=== PATIENT | male | born 1970 | race Hispanic/Latino ===

== ENCOUNTER 2019-10-19 11:12 | Observation (INO) | payer BC, SELFPAY ==
[2019-10-19] MEDS ORDERED: MORPHINE 2 MG/ML SYR ONE (11:47)
[2019-10-19] MEDS ORDERED: ONDANSETRON 4 MG/2 ML VIAL ONE ×2 (11:47→14:57)
[2019-10-19] MEDS ORDERED: NA CHLORIDE 0.9% 1,000 ML ONE (11:47)
[2019-10-19 11:57] LABS: Absolute Lymphocytes (CBC) 1.6 K/uL (0.7-4.9); Basophils % 0.5 % (0-1.3); Hematocrit 42.9 % (39.6-49.0); MPV 9.2 fL (7.6-11.3); RBC Red Blood Cell Count 6.82 M/uL (4.33-5.43)
[2019-10-19 12:16] LABS: Albumin 3.8 g/dL (3.4-5.0); Bilirubin Direct 0.2 mg/dL (0-0.2); Bilirubin Total 0.6 mg/dL (0.2-1.0); Potassium 3.9 mmol/L (3.5-5.1)
[2019-10-19 12:38] LABS: Anisocytosis 2+; Blood Morphology Comment NOTED (NOT SEEN); Hypochromasia 2+; Platelet Estimate ADEQ; Urine White Blood Cell Casts OK
--- NOTE | 2019-10-19 12:41 | RAD REPORT ---
EXAM DESCRIPTION: CT - Abdomen Pelvis W Contrast - 10/19/2019 12:28 pm CLINICAL HISTORY: ABD PAIN COMPARISON: No comparisons TECHNIQUE: Biphasic, helical CT imaging of the abdomen and pelvis was performed following 100 ml non -ionic IV contrast. No oral contrast was given. All CT scans are performed using dose optimization technique as appropriate and may include automated exposure control or mA/KV adjustment according to patient size. FINDINGS: No suspicious findings in the lung bases. The liver, spleen, and pancreas show no suspicious findings. There is borderline to mild fatty infilt ration of the liver. No gallbladder or biliary tree abnormality. Symmetric renal function is seen with no hydronephrosis or suspicious renal mass. No pyelonephritis o r acute parenchymal process. No bladder abnormalities. No adrenal abnormalities. Stomach is distended with retained fluid and a small amount of food. . No wall thickening or mass. Sm all bowel loops are not dilated but multiple fluid-filled small bowel loops are present. No colon dil atation. Moderate stool volume seen in the right-side of the colon. Midportion of the appendix is dil ated to 12-2013 mm. Punctate appendicoliths are present. There is trace amount of stranding in the pe riappendiceal fat. Tip of the cecum is not thickened. No free air, free fluid or pneumatosis. No other area of possible inflammatory stranding. No mass or bulky lymphadenopathy. A very small sub centimeter umbilical hernia is present. Small bilateral fat only inguinal hernias are present. No suspicious bony findings. IMPRESSION: As detailed above, findings in the appendix are suspicious for early appendicitis and co rrelation is needed with clinical presentation. Patient also has a nonobstructive gastroenteritis pattern. No bowel obstruction, free air or emergent finding otherwise noted.
--- NOTE | 2019-10-19 13:31 | RAD REPORT ---
EXAM DESCRIPTION: RAD - Chest Single View - 10/19/2019 1:23 pm CLINICAL HISTORY: abdominal pain Chest pain. COMPARISON: No comparisons FINDINGS: Portable technique limits examination quality. The lungs are grossly clear. The heart is normal in size. No displaced fractures. IMPRESSION: No acute intrathoracic process suspected.
[2019-10-19 13:32] LABS: Protime INR 0.98
[2019-10-19] MEDS ORDERED: PIPER/TAZO/NS 3.375gm 3.375 GM/100 ML BAG ONE (13:33)
--- NOTE | 2019-10-19 13:46 | ER ---
Nurse's Notes [facility] Name: Fred Castro Age: 49 yrs Sex: Male : 1970 Arrival Date: 10/19/2019 Time: 11:15 Bed 15 Private MD: Diagnosis: Acute appendicitis Presentation: 10/19 11:18 Presenting complaint: Patient states: Stomach pains and cramps since 430 this morning. ca1 I tried to use the restroom but cannot. Took Mg Citrate, Pepto-Bismol and some heartburn medicine. Denies N/V/diarrhea. Transition of care: patient was not received from another setting of care. Onset of symptoms was October 19, 2019. Risk Assessment: Do you want to hurt yourself or someone else? Patient reports no desire to harm self or others. Initial Sepsis Screen: Does the patient meet any 2 criteria? No. Patient's initial sepsis screen is negative. Does the patient have a suspected source of infection? No. Patient's initial sepsis screen is negative. Care prior to arrival: None. 11:18 Method Of Arrival: Ambulatory ca1 11:18 Acuity: SUNSHINE 3 ca1 Historical: - Allergies: 11:22 No Known Allergies; ca1 - Home Meds: 11:22 lisinopril 20 mg Oral tab 1 tab once daily [Active]; ca1 - PMHx: 11:22 Hypertension; ca1 - PSHx: 11:22 None; ca1 - Immunization history:: Adult Immunizations up to date, Flu vaccine is not up to date. Patient has never been vaccinated. - Coronavirus screen:: The patient has NOT traveled to [place], [place], or [place] in the past 14 days. The patient has NOT had contact with known/suspected case of Coronavirus?. - Social history:: Smoking status: Patient reports the use of cigarette tobacco products, smokes one-half pack cigarettes per day. - Ebola Screening: : Patient negative for fever greater than or equal to 101.5 degrees Fahrenheit, and additional compatible Ebola Virus Disease symptoms Patient denies exposure to infectious person Patient denies travel to an Ebola-affected area in the 21 days before illness onset No symptoms or risks identified at this time. Screenin:30 Abuse screen: Denies threats or abuse. Nutritional screening: No deficits noted. rb1 Tuberculosis screening: No symptoms or risk factors identified. Fall Risk None identified. Assessment: 11:30 General: Appears in no apparent distress. comfortable, Behavior is calm, cooperative, rb1 Denies fever. General: Pt. reports having two beers last night. Pain: Complains of pain in abdomen Pain currently is 8 out of 10 on a pain scale. Quality of pain is described as crampy, Pain began 0430 this morning. Neuro: Level of Consciousness is awake, alert, obeys commands, Oriented to person, place, time, situation. Cardiovascular: Capillary refill < 3 seconds is brisk in bilateral fingers. Respiratory: Airway is patent Respiratory effort is even, unlabored, Respiratory pattern is regular, symmetrical. GI: Bowel sounds present X 4 quads. Abd is soft. GI: Reports lower abdominal pain, since last bowel movement was this morning, stool was hard per pt. report. : No signs and/or symptoms were reported regarding the genitourinary system. Derm: Skin is pink, warm \T\ dry. 12:30 Reassessment: Patient appears in no apparent distress at this time. No changes from rb1 previously documented assessment. 13:30 Reassessment: Patient appears in no apparent distress at this time. Patient and/or rb1 family updated on plan of care and expected duration. Pain level reassessed. Patient is alert, oriented x 3, equal unlabored respirations, skin warm/dry/pink. Vital Signs: 11:22 BP 173 / 111; Pulse 84; Resp 17 S; Temp 98.5(TE); Pulse Ox 100% on R/A; Weight 81.65 kg ca1 (R); Height 5 ft. 5 in. (165.10 cm) (R); Pain 8/10; 12:00 BP 156 / 80; Pulse 79; Resp 17; Pulse Ox 98% on R/A; rb1 12:52 BP 164 / 93; Pulse 84; Resp 17; Temp 97.8(O); Pulse Ox 98% on R/A; mh5 13:35 BP 163 / 89; Pulse 82; Resp 19; Pulse Ox 98% on R/A; Pain 9/10; rb1 11:22 Body Mass Index 29.95 (81.65 kg, 165.10 cm) ca1 ED Course: 11:15 Patient arrived in ED. ag5 11:21 Triage completed. ca1 11:22 Arm band placed on right wrist. ca1 11:24 Дмитрий Sanchez PA is PHCP. cp 11:24 Waqar Christianson MD is Attending Physician. cp 11:30 Patient has correct armband on for positive identification. Bed in low position. Call rb1 light in reach. Side rails up X 1. Pulse ox on. NIBP on. 11:37 Mini Leonard, RN is Primary Nurse. rb1 11:48 Initial lab(s) drawn, by nm, sent to lab. Inserted saline lock: 20 gauge in right jl7 forearm, using aseptic technique. Blood collected. 12:29 CT Abd/Pelvis - IV Contrast Only In Process Unspecified. EDMS 13:25 XRAY Chest (1 view) In Process Unspecified. EDMS 13:26 EKG done, by technical inspector. reviewed by Дмитрий DUKE. at1 13:46 Hector Griffith MD is Hospitalizing Provider. cp 14:06 No provider procedures requiring assistance completed. Patient admitted, IV remains in rb1 place. Administered Medications: 11:51 Drug: morphine 2 mg Route: IVP; Site: right antecubital; rb1 12:07 Follow up: Response: No adverse reaction; Pain is decreased rb1 11:52 Drug: NS 0.9% 1000 ml Route: IV; Rate: 1 bolus; Site: right antecubital; rb1 13:00 Follow up: IV Status: Completed infusion rb1 11:52 Drug: Zofran 4 mg Route: IVP; Site: right antecubital; rb1 12:07 Follow up: Response: No adverse reaction rb1 13:39 Drug: Zosyn 3.375 grams Route: IVPB; Infused Over: 60 mins; Site: right antecubital; rb1 14:00 Drug: morphine 4 mg Route: IVP; Site: right antecubital; rb1 14:06 Follow up: Response: Other; Medication administered before being admitted to the OR rb1 Outcome: 13:46 Decision to Hospitalize by Provider. cp 14:06 Admitted to OR accompanied by nurse, via wheelchair, with chart. rb1 14:06 Condition: stable 14:06 Instructed on the need for admit. 14:07 Patient left the ED. rb1 Signatures: Dispatcher [employer] EDMS Kristi Silver, admin dir EKG Tat1 Дмитрий Sanchez PA PA cp Mini Leonard, RN RN rb1 Vicki Sousa [facility] Thierno Foreman RN RN jl7 Lisa Pal, RN RN ca1 Marcela, Declan ag5
--- NOTE | 2019-10-19 13:47 | EDPHYS ---
Physician Documentation [facility] Name: Fred Castro Age: 49 yrs Sex: Male : 1970 Arrival Date: 10/19/2019 Time: 11:15 Bed 15 Private MD: ED Physician Waqar Christianson HPI: 10/19 11:45 This 49 yrs old Male presents to ER via Ambulatory with complaints of cp Abdominal Cramping, Abdominal Pain. 11:45 The patient presents with abdominal pain in the lower abdomen. Onset: The cp symptoms/episode began/occurred last night. 11:45 Associated signs and symptoms: Pertinent positives: constipation, Pertinent negatives: cp anorexia, blood in stools, chest pain, diarrhea, fever, shortness of breath, testicular pain, vomiting. Historical: - Allergies: 11:22 No Known Allergies; ca1 - Home Meds: :22 lisinopril 20 mg Oral tab 1 tab once daily [Active]; ca1 - PMHx: 11: Hypertension; ca1 - PSHx: 11:22 None; ca1 - Immunization history:: Adult Immunizations up to date, Flu vaccine is not up to date. Patient has never been vaccinated. - Coronavirus screen:: The patient has NOT traveled to [place], [place], or [place] in the past 14 days. The patient has NOT had contact with known/suspected case of Coronavirus?. - Social history:: Smoking status: Patient reports the use of cigarette tobacco products, smokes one-half pack cigarettes per day. - Ebola Screening: : Patient negative for fever greater than or equal to 101.5 degrees Fahrenheit, and additional compatible Ebola Virus Disease symptoms Patient denies exposure to infectious person Patient denies travel to an Ebola-affected area in the 21 days before illness onset No symptoms or risks identified at this time. ROS: 12:00 Constitutional: Negative for body aches, chills, fever, poor PO intake. cp 12:00 Eyes: Negative for injury, pain, redness, and discharge. cp 12:00 ENT: Negative for drainage from ear(s), ear pain, sore throat, difficulty swallowing, difficulty handling secretions. 12:00 Cardiovascular: Negative for chest pain, palpitations. 12:00 Respiratory: Negative for cough, shortness of breath, wheezing. 12:00 Abdomen/GI: Positive for abdominal pain, constipation, abdominal cramps, Negative for vomiting, diarrhea, black/tarry stool, rectal bleeding. 12:00 Back: Negative for radiated pain. 12:00 : Negative for urinary symptoms, testicular pain 12:00 Skin: Negative for cellulitis, rash. 12:00 Neuro: Negative for altered mental status, headache, weakness. 12:00 All other systems are negative. Exam: 12:05 Constitutional: The patient appears in no acute distress, alert, awake, cp non-diaphoretic, non-toxic, well developed, well nourished, uncomfortable. 12:05 Head/Face: Normocephalic, atraumatic. cp 12:05 Eyes: Periorbital structures: appear normal, Conjunctiva: normal, no exudate, no injection, Sclera: no appreciated abnormality, Lids and lashes: appear normal, bilaterally. 12:05 ENT: External ear(s): are unremarkable, Nose: is normal, Mouth: Lips: moist, Oral mucosa: pink and intact, moist, Posterior pharynx: is normal, airway is patent, no erythema, no exudate. 12:05 Chest/axilla: Inspection: normal, Palpation: is normal, no crepitus, no tenderness. 12:05 Cardiovascular: Rate: normal, Rhythm: regular, Edema: is not appreciated, JVD: is not appreciated. 12:05 Respiratory: the patient does not display signs of respiratory distress, Respirations: normal, no use of accessory muscles, no retractions, labored breathing, is not present, Breath sounds: are clear throughout, no decreased breath sounds, no wheezing. 12:05 Abdomen/GI: Inspection: abdomen appears normal, Bowel sounds: active, all quadrants, Palpation: soft, in all quadrants, moderate abdominal tenderness, in the right lower quadrant, rebound tenderness, is not appreciated, voluntary guarding, is elicited in the right lower quadrant. 12:05 Back: pain, is absent, ROM is normal. 12:05 Skin: no rash present. 12:05 Neuro: Orientation: to person, place \T\ time. Mentation: is normal, Motor: moves all fours, strength is normal. 13:27 ECG was reviewed by the Attending Physician. cp Vital Signs: 11:22 BP 173 / 111; Pulse 84; Resp 17 S; Temp 98.5(TE); Pulse Ox 100% on R/A; Weight 81.65 kg ca1 (R); Height 5 ft. 5 in. (165.10 cm) (R); Pain 8/10; 12:00 BP 156 / 80; Pulse 79; Resp 17; Pulse Ox 98% on R/A; rb1 12:52 BP 164 / 93; Pulse 84; Resp 17; Temp 97.8(O); Pulse Ox 98% on R/A; mh5 13:35 BP 163 / 89; Pulse 82; Resp 19; Pulse Ox 98% on R/A; Pain 9/10; rb1 11:22 Body Mass Index 29.95 (81.65 kg, 165.10 cm) ca1 MDM: 11:32 Patient medically screened. cp 13:05 Data reviewed: vital signs, nurses notes, lab test result(s), radiologic studies, CT cp scan, I have discussed the patient's presentation/case with the attending Emergency Department Physician;. 10/19 11:37 Order name: Basic Metabolic Panel; Complete Time: 12:17 cp 02/04 12:17 Interpretation: Normal except: GLUC 133; BUN 20; GFR 78. cp 02/04 11:37 Order name: CBC with Diff; Complete Time: 13:03 cp 02/04 11:37 Order name: Creatinine for Radiology; Complete Time: 12:17 cp 02/04 11:37 Order name: Hepatic Function; Complete Time: 12:17 cp 02/04 11:37 Order name: Lipase; Complete Time: 12:17 cp 02/04 12:39 Order name: CBC Smear Scan; Complete Time: 13:03 EDMS 10/19 11:37 Order name: CT Abd/Pelvis - IV Contrast Only; Complete Time: 13:03 cp 02/04 13:06 Order name: XRAY Chest (1 view); Complete Time: 13:45 cp 02/04 13:45 Interpretation: Report review. cp 02/04 13:06 Order name: PT-INR; Complete Time: 13:33 cp 02/04 13:06 Order name: Ptt, Activated; Complete Time: 13:33 cp 02/04 11:37 Order name: IV Saline Lock; Complete Time: 11:52 cp 02/04 11:37 Order name: Labs collected and sent; Complete Time: 12:51 cp 02/04 12:39 Order name: NPO; Complete Time: 13:26 cp 02/04 13:06 Order name: EKG; Complete Time: 13: cp 10/19 13: Order name: EKG - Nurse/Tech; Complete Time: : cp EC: Rate is 78 beats/min. Rhythm is regular. RI interval is normal. QRS interval is normal. cp QT interval is normal. Interpreted by me. Reviewed by me. Administered Medications: 11:51 Drug: morphine 2 mg Route: IVP; Site: right antecubital; rb1 12:07 Follow up: Response: No adverse reaction; Pain is decreased rb1 11:52 Drug: NS 0.9% 1000 ml Route: IV; Rate: 1 bolus; Site: right antecubital; rb1 13:00 Follow up: IV Status: Completed infusion rb1 11:52 Drug: Zofran 4 mg Route: IVP; Site: right antecubital; rb1 12:07 Follow up: Response: No adverse reaction rb1 13:39 Drug: Zosyn 3.375 grams Route: IVPB; Infused Over: 60 mins; Site: right antecubital; rb1 14:00 Drug: morphine 4 mg Route: IVP; Site: right antecubital; rb1 14:06 Follow up: Response: Other; Medication administered before being admitted to the OR rb1 Disposition: 14:27 Co-signature as Attending Physician, Waqar Christianson MD. rn Disposition: 10/19/19 13:46 Hospitalization ordered by Hector Griffith for Observation. Preliminary diagnosis is Acute appendicitis. - Bed requested for Telemetry/MedSurg (observation). - Status is Observation. rb1 - Condition is Stable. - Problem is new. - Symptoms have improved. Signatures: Dispatcher [employer] EDMS Waqar Christianson MD MD rn Page, Corey, PA PA cp Barber, Rebecca, RN RN rb1 Lisa Pal RN RN ca1 Corrections: (The following items were deleted from the chart) 13:10/18 12:05 Constitutional: The patient appears in no acute distress, alert, awake, cp non-diaphoretic, non-toxic, well developed, well nourished, uncomfortable, cp 10/19 13:25 10/18 12:05 Head/Face: Normocephalic, atraumatic. cp cp 10/19 13:10/18 12:05 Eyes: Periorbital structures: appear normal, Conjunctiva: normal, no cp exudate, no injection, Sclera: no appreciated abnormality, Lids and lashes: appear normal, bilaterally, cp 10/19 12:05 ENT: External ear(s): are unremarkable, Nose: is normal, Mouth: Lips: cp moist, Oral mucosa: pink and intact, moist, Posterior pharynx: is normal, airway is patent, no erythema, no exudate, cp 10/19 12:05 Neck: ROM/movement: is normal, is supple, without pain, no range of motions cp limitations, no nuchal rigidity, cp 10/19 12:05 Chest/axilla: Inspection: normal, Palpation: is normal, no crepitus, no cp tenderness, cp 10/19 12:05 Cardiovascular: Rate: normal, Rhythm: regular, Edema: is not appreciated, cp JVD: is not appreciated, cp 10/19 12:05 Respiratory: the patient does not display signs of respiratory distress, cp Respirations: normal, no use of accessory muscles, no retractions, labored breathing, is not present, Breath sounds: are clear throughout, no decreased breath sounds, no stridor, no wheezing, cp 10/19 12:05 Abdomen/GI: Inspection: abdomen appears normal, Bowel sounds: active, all cp quadrants, Palpation: soft, in all quadrants, moderate abdominal tenderness, in the right lower quadrant, rebound tenderness, is not appreciated, voluntary guarding, is elicited in the right lower quadrant, cp 10/19 12:05 Back: pain, is absent, ROM is normal, cp cp 10/19 14:07 13:46 Hospitalization Ordered by Hector Griffith MD for Observation. Preliminary rb1 diagnosis is Acute appendicitis. Bed requested for Telemetry/MedSurg (observation). Status is Observation. Condition is Stable. Problem is new. Symptoms have improved. cp
[2019-10-19] MEDS ORDERED: MORPHINE 4 MG/ML SYR ONE (14:00)
[2019-10-19] MEDS ORDERED: propofoL 200 MG/20 ML VIAL IV ONE (14:04)
[2019-10-19] MEDS ORDERED: MIDAZOLAM HCL 2 MG/2 ML INJ ONE (14:04)
[2019-10-19] MEDS ORDERED: FENTANYL CITR 100 MCG/2 ML ONE (14:04)
[2019-10-19] MEDS ORDERED: LIDOCAINE 2% MPF 5 ML VIAL ONE (14:04)
[2019-10-19] MEDS ORDERED: Ringers Lactate 1,000 ML IV ONE (14:09)
[2019-10-19] MEDS ORDERED: ROCURONIUM 50 MG/5 ML VIAL IV ONE (14:11)
--- NOTE | 2019-10-19 14:19 | P.HP ---
Date of Service: 10/19/19 PC: This 49-year-old male presents emergency room with severe right lower quadrant abdominal pain for diagnosis and treatment. HPC: Patient woke up this morning, had some to eat, went to work. On is when he noticed that he was having some right lower quadrant abdominal pain. Hurt when he walked. He could feel the bumps in the road. Came to the emergency room. PMH: Hypertension PSHx: Negative SOC: No known allergies, takes lisinopril SYS REVIEW: No cough, wheeze, shortness of breath. No chest pain or palpitations. No urinary complaints. Lives locally with his girlfriend. O/E awake alert stable HEENT: Nonicteric Chest: Chest movement equal bilaterally ABD: Tender with guarding in the right lower quadrant LOCO: Intact DATA: Elevated white cell count, CT scan supports clinical diagnosis of acute abdomen IMPRESSION: Acute appendicitis PLAN: I will take him to the operating room for laparoscopic possible open appendectomy. The risks of this procedure have been discussed. The possibility of bleeding, infection, injury to bowel and surrounding structures has been described. The possible need for an open and/or further surgeries and procedures was discussed. He understands and wants us to proceed.
[2019-10-19] MEDS ORDERED: KETOROLAC 30 MG/ML INJ ONE (14:57)
[2019-10-19] MEDS ORDERED: NEOSTIGMINE 1 MG/ML -5 ML ONE (14:57)
[2019-10-19] MEDS ORDERED: GLYCOPYRROLATE 0.2 MG/ML SYR ONE (14:57)
[2019-10-19] MEDS ORDERED: HYDROCODONE/APAP 7.5/325 MG TAB PO PRN (15:06)
--- NOTE | 2019-10-19 15:09 | P.OP ---
Preoperative diagnosis: Acute abdomen Postoperative diagnosis: Acute appendicitis Primary procedure: Laparoscopic appendectomy Anesthesia: General Estimated blood loss: Less than 10 cc Specimen: 1 appendix Operative Technique: The patient brought the operating room placed supine on the table. After the induction of adequate general endotracheal anesthesia, the area of the abdomen was prepped with a DuraPrep solution, and he was draped in usual sterile aseptic manner. A subumbilical incision was made. This brought down through the skin and subcutaneous tissue. The Visiport was now used to enter the peritoneal cavity and created pneumoperitoneum to approximately 12 mm of mercury. Under direct vision a 5 mm trocar was placed in the right upper quadrant, and another 5 mm in the lower midline. The patient was now placed and Trendelenburg and rolled to the left. We could its visualize right lower quadrant. There was intense inflammatory process with some adhesions of the omentum to the anterior abdominal wall this area. These were taken down using blunt dissection. The acutely inflamed appendix was seen. There was fibrinous exudate all over and no gross perforation was noted. A window was made in in the mesentery just at its junction with the cecum. The linear Stapler was now introduced to the peritoneal cavity. An is placed across the base of the appendix and fired. The mesentery the appendix was cleaned and transected using a vascular reload. The specimen was then placed into an Endo-Catch and brought out through the umbilical trocar site. We inspected the right lower quadrant. No further bleeding was noted. The patient does have 2 very small inguinal hernias however they do not appear to be symptomatic. At this point the anterior abdominal wall was injected on the right side to do a Margy block with 0.25% Marcaine. The pneumoperitoneum was then collapsed after having approximated the umbilical fascia using the Endo Close an absorbable suture. The pneumoperitoneum was collapsed, the trocars removed, and nancy applied to the skin. At the end of the procedure he was in a stable condition when sent to the recovery room. Needle sponge instrument count were correct. No drains were placed. Complications: None Transferred to: Recovery Room Condition: Good
[2019-10-19] MEDS ORDERED: Levofloxacin500mg IV 500 MG/100 ML BAG IV SCH (16:00)
[2019-10-19] MEDS: Ringers Lactate 1,000 ML IV SCH ×3 (16:00→22:39)
--- NOTE | 2019-10-19 16:12 | EKG ---
Test Date: 2019-10-19 Test Time: 13:24:19 Aircraft Painter Apprentice: CHRISTIAN MEASUREMENT RESULTS: Intervals: Rate: 78 CA: 132 QRSD: 86 QT: 364 QTc: 414 [place]: P: 18 CA: 132 QRS: 38 T: 35 INTERPRETIVE STATEMENTS: Normal sinus rhythm Normal ECG Compared to ECG 07/10/2017 14:17:46 No significant changes Electronically Signed On 10-19-19 16:11:39 COMBAT CONTROL MANAGER by Miller Powell
[2019-10-19 17:10] VITALS: BMI 29.9
[2019-10-19] MEDS ORDERED: INFLUENZA VACCINE (for 3y+) 0.5 ML DOSE IMVAC ONE (18:00)
[2019-10-19] MEDS: MORPHINE 4 MG/ML SYR IV PRN ×2 (18:09→20:19)
[2019-10-19] MEDS: ONDANSETRON 4 MG/2 ML VIAL IV PRN (21:07)
[2019-10-20] MEDS: MORPHINE 4 MG/ML SYR IV PRN (04:02)
[2019-10-20 04:51] VITALS: O2SAT 98
[2019-10-20] MEDS: Ringers Lactate 1,000 ML IV SCH ×2 (05:51→12:00)
[2019-10-20] MEDS ORDERED: INFLUENZA VACCINE (for 3y+) 0.5 ML DOSE IMVAC ONE (09:00)
[2019-10-20] MEDS: ONDANSETRON 4 MG/2 ML VIAL IV PRN (12:21)
[2019-10-20 13:27] VITALS: BP 141/73; TEMP 97.4
--- NOTE | 2019-10-20 14:06 | P.DS ---
Admission Date: 10/19/19 Discharge Date: 10/20/19 Disposition: ROUTINE DISCHARGE Discharge Condition: GOOD Reason for Admission: Acute postoperative abdominal pain Procedures: Laparoscopic appy Brief History of Present Illness: This 49-year-old male presents emergency room with severe right lower quadrant abdominal pain for diagnosis and treatment. By history and CT scan as well as as physical examination he was found to have acute appendicitis. He was brought to the operating room were he underwent a laparoscopic appendectomy. He was admitted postoperatively for observation pain control. Today he is up ambulating, tolerating a diet, and his pain is controlled with oral medication. He is deemed fit for discharge. Vital Signs/Physical Exam: Temp Pulse Resp BP Pulse Ox 97.4 F 77 19 141/73 H 95 10/20/19 12:00 10/20/19 12:00 10/20/19 13:10 10/20/19 12:00 10/20/19 13:10 Laboratory Data at Discharge: WBC 16.4 K/uL (4.3-10.9) H 10/19/19 11:45 Hgb 13.5 g/dL (13.6-17.9) L 10/19/19 11:45 Hct 42.9 % (39.6-49.0) 10/19/19 11:45 Plt Count 215 K/uL (152-406) 10/19/19 11:45 PT 11.6 SECONDS (9.5-12.5) 10/19/19 13:20 INR 0.98 10/19/19 13:20 APTT 28.2 SECONDS (24.3-36.9) 10/19/19 13:20 Sodium 139 mmol/L (136-145) 10/19/19 11:45 Potassium 3.9 mmol/L (3.5-5.1) 10/19/19 11:45 BUN 20 mg/dL (7-18) H 10/19/19 11:45 Creatinine 1.01 mg/dL (0.55-1.3) 10/19/19 11:45 Glucose 133 mg/dL (74-106) H 10/19/19 11:45 Total Bilirubin 0.6 mg/dL (0.2-1.0) 10/19/19 11:45 AST 18 U/L (15-37) 10/19/19 11:45 ALT 48 U/L (12-78) 10/19/19 11:45 Alkaline Phosphatase 93 U/L (45-117) 10/19/19 11:45 Lipase 148 U/L (73-393) 10/19/19 11:45 Home Medications: Aspirin [Aspirin EC 81 MG] 81 mg PO DAILY 10/19/19 Lisinopril [Zestril] 20 mg PO DAILY 10/19/19
== END 2019-10-20 15:22 | disposition home or self-care (01) ==
LOC: ER 11:12 → OR 13:46 → ER 15:35 → 2ND 15:35 → OR 16:10 → 2ND 17:42 → OR 10-20 15:22
PROVIDERS: ADMIT Physician Assistant; ATTEND Surgery
PROC: 0DTJ4ZZ Resection of Appendix, Percutaneous Endoscopic Approach (ICD-10-PCS; principal; 2019-10-19 14:00)
DX: K35.80 Unspecified acute appendicitis (principal); G89.18 Other acute postprocedural pain; Z23 Encounter for immunization
CPT/HCPCS: 36415; 71045; 74177; 80048; 80076; 83690; 85025; 85610; 85730; 88304; 90471; 93005; 96361; 96374; 96375; 99285; G0378; J2250; J2270; J2405; J2543; J2704; J2710; J3010; J7030; J7120; Q2035